=== PATIENT | female | born 1990 | race Hispanic/Latino ===

== ENCOUNTER 2021-02-04 07:31 | Emergency (ER) | payer OTHER ==
[~2021-02-04 07:31] MED LIST: CIPR500T10 PO; FERS325 PO
[2021-02-04] MEDS ORDERED: ASPIRIN 325 MG TABLET ONE (08:03)
[2021-02-04] MEDS ORDERED: NITROGLYCERIN 0.4 MG SL TAB SL ONE (08:04)
[2021-02-04 08:05] LABS: BASOPHILS % (AUTO) 0.4 % (0.0-5.0); EOSINOPHILS % (AUTO) 0.7 % (0.0-8.0); HEMATOCRIT 34.4 % (36-48); LYMPHOCYTES % (AUTO) 31.3 % (21.0-51.0); MEAN CORPUSCULAR HEMOGLOBIN 22.8 pg (27.0-33.0); MEAN CORPUSCULAR HGB CONC 28.5 g/dL (32.0-36.0); MONOCYTES % (AUTO) 6.7 % (3.0-13.0); NEUTROPHILS % (AUTO) 60.8 % (40.0-77.0); PLATELET COUNT (AUTO) 470 K/uL (130-400); RED CELL DISTRIBUTION WIDTH 22.6 % (11.0-15.5); WHITE BLOOD COUNT (AUTO) 6.7 K/uL (4.8-10.8)
[2021-02-04 08:20] LABS: PROTHROMBIN TIME 10.9 SEC (9.6-11.6)
[2021-02-04 08:21] LABS: PARTIAL THROMBOPLASTIN TIME 26.2 SEC (26.3-35.5)
[2021-02-04 08:42] LABS: ALBUMIN 3.7 g/dL (3.5-5.0); BILIRUBIN,TOTAL 0.2 mg/dL (0.2-1.0); CREATININE 0.9 mg/dL (0.5-1.5); TOTAL PROTEIN, SERUM 8.5 g/dL (6.0-8.3)
[2021-02-04] MEDS ORDERED: MORPHINE SULFATE 4 MG/1ML SYG ONE (09:59)
== END 2021-02-04 10:44 | disposition left against medical advice (07) ==
LOC: EDH 07:31
DX: R07.89 Other chest pain (principal); R51.9 Headache, unspecified; F41.9 Anxiety disorder, unspecified; F19.10 Other psychoactive substance abuse, uncomplicated
CPT/HCPCS: 36415; 71045; 80053; 82550; 84484 ×2; 84702; 85025; 85610; 85730; 93005 ×2; 96372; 99285; J2270

== ENCOUNTER 2021-02-17 03:00 | Emergency (ER) | payer OTHER ==
[2021-02-17] MEDS ORDERED: IBUPROFEN 600 MG TABLET ONE (04:49)
[2021-02-17] MEDS ORDERED: ACETAMINOPHEN EXTRA STRENGTH 500 MG TABLET ONE (04:49)
== END 2021-02-17 05:59 | disposition home or self-care (01) ==
LOC: EDH 03:00
DX: S93.409A Sprain of unspecified ligament of unspecified ankle, initial encounter (principal); S00.83XA Contusion of other part of head, initial encounter; Z90.49 Acquired absence of other specified parts of digestive tract; Z72.0 Tobacco use; Y09 Assault by unspecified means; Y93.89 Activity, other specified; Y92.098 Other place in other non-institutional residence as the place of occurrence of the external cause; Y99.8 Other external cause status
CPT/HCPCS: 70450; 70486; 73610; 81025

== ENCOUNTER 2023-03-29 18:57 | Emergency (ER) | payer BC ==
[~2023-03-29] VITALS: Ht 154.9 cm; Wt 54.4 kg
[2023-03-29 19:42] LABS: BASOPHILS % (AUTO) 0.2 % (0.0-5.0); HEMATOCRIT 33.8 % (36-48); LYMPHOCYTES % (AUTO) 16.6 % (21.0-51.0); MEAN CORPUSCULAR HGB CONC 32.5 g/dL (32.0-36.0); MEAN CORPUSCULAR VOLUME 82.8 fL (79-99); MONOCYTES % (AUTO) 4.9 % (3.0-13.0); NEUTROPHILS % (AUTO) 77.9 % (40.0-77.0); PLATELET COUNT (AUTO) 288 K/uL (130-400); RED BLOOD CELL COUNT(AUTO) 4.08 MIL/uL (4.00-5.50); RED CELL DISTRIBUTION WIDTH 14.8 % (11.0-15.5); WHITE BLOOD COUNT (AUTO) 4.7 K/uL (4.8-10.8)
[2023-03-29 19:50] LABS: APPEARANCE,URINE CLOUDY (CLEAR); BILIRUBIN,URINE NEGATIVE (NEGATIVE); COLOR,URINE YELLOW (YELLOW); GLUCOSE, URINE (UA) 200 mg/dL (NEGATIVE); KETONES,URINE 40 mg/dL (NEGATIVE); LEUKOCYTE ESTERASE ,URINE 25 Leu/uL (NEGATIVE); NITRATE,URINE NEGATIVE (NEGATIVE); OCCULT BLOOD,URINE SMALL (NEGATIVE); PROTEIN,URINE 600 mg/dL (NEGATIVE)
[2023-03-29 19:54] LABS: CREATINE KINASE, TOTAL 75 U/L (21-232); SALICYLATE 3.9 mg/dL (2.8-20.0)
[2023-03-29 19:55] LABS: CREATININE 0.7 mg/dL (0.5-1.5); TOTAL PROTEIN, SERUM 8.2 g/dL (6.0-8.3)
[2023-03-29 19:56] LABS: ACETAMINOPHEN < 1 mcg/mL (10-30); POTASSIUM 2.6 mmol/L (3.5-5.1)
[2023-03-29 19:57] LABS: AMPHET/METH SCREEN,URINE NEGATIVE (NEGATIVE); BARBITURATE SCREEN, URINE NEGATIVE (NEGATIVE); BENZODIAZEPINES SCREEN,URINE POSITIVE (NEGATIVE); CANNABINOID SCREEN,URINE NEGATIVE (NEGATIVE); COCAINE SCREEN,URINE POSITIVE (NEGATIVE); OPIATE SCREEN,URINE NEGATIVE (NEGATIVE); PHENCYCLIDINE SCREEN,URINE NEGATIVE (NEGATIVE)
[2023-03-29 20:05] LABS: BACTERIA,URINE MOD /HPF (None Seen); MUCUS,URINE MANY LPF (None Seen); RBC,URINE 26-50 /HPF (0-1); SQUAMOUS EPITHELIAL CELL,UR MANY /HPF (0-2)
[2023-03-29] MEDS ORDERED: POTASSIUM CHLORIDE 10MEQ/100ML 100 ML IV SCH (21:00)
[2023-03-29] MEDS ORDERED: POTASSIUM BICARB/CIT AC 25 MEQ TABLET.EFF PO ONE (21:00)
[2023-03-29] MEDS ORDERED: CEFTRIAXONE 1G VIAL IVPB ONE (21:00)
[2023-03-29] MEDS ORDERED: CEFU500T67 PO (23:34)
[2023-03-30 01:29] VITALS: BP 117/82
== END 2023-03-30 02:05 | disposition home or self-care (01) ==
LOC: EDH 18:57
DX: O26.891 Other specified pregnancy related conditions, first trimester (principal); R55 Syncope and collapse; F14.10 Cocaine abuse, uncomplicated; N39.0 Urinary tract infection, site not specified
CPT/HCPCS: 99284; 96365; 96366; 82550; 80053; 80305; 84703; 84702; 85025; 85378; 87088; 81001; 36415; 96368; 93005; G0481; J0696